=== PATIENT | male | born 1975 | race Caucasian/White ===

== ENCOUNTER 2022-12-30 16:42 | Emergency (ER) | payer MEDICARE, SELFPAY ==
[2022-12-30 16:59] VITALS: BP 133/93; PULSE 84; RESP 16; TEMP 37; O2SAT 99
--- NOTE | 2022-12-30 17:09 | DI.RAD.S_ITS ---
PROCEDURE: XR CHEST 2V INDICATIONS: congestion TECHNIQUE: 2 views of the chest were acquired. COMPARISON: None. FINDINGS: Surgical changes and devices: None. Lungs and pleura: Lungs are clear. No pleural effusions or pneumothorax. Mediastinum: Mediastinal contours are normal. Heart size is normal. Bones and chest wall: No suspicious bony abnormalities. Soft tissues appear unremarkable. IMPRESSION: Normal chest. No infiltrates. Dictated by: Michele Del Rosario M.D. on 12/30/2022 at 16:39 Approved by: Michele Del Rosario M.D. on 12/30/2022 at 16:39
[2022-12-30 17:17] LABS: Appearance Urine UA CLEAR; Bilirubin Urine UA NEGATIVE (NEGATIVE); Color Urine UA YELLOW; Glucose Urine UA NEGATIVE (Negative); Ketones Urine UA NEGATIVE (NEGATIVE); Leukocyte Esterase Urine UA NEGATIVE (NEGATIVE); Nitrite Urine UA NEGATIVE (Negative); Occult Blood Urine UA NEGATIVE (Negative); Protein Urine UA NEGATIVE (Negative); Specific Gravity Urine UA 1.025 (1.000-1.035); Urobilinogen Urine UA 0.2 E.U./dL (0.2); pH Urine UA 6.5 (4.5-8.0)
[2022-12-30 17:22] LABS: UR Morphine/Opiate cutoff 300 Negative (Negative); Ur Creatinine Normal (Normal); Ur Specific Gravity Normal (Normal); Urine Amphetamines Negative (Negative); Urine Barbiturates Negative (Negative); Urine Benzodiazepines Negative (Negative); Urine Cocaine Negative (Negative); Urine MDMA Negative (Negative); Urine Methadone Negative (Negative); Urine Methamphetamines Negative (Negative); Urine Oxycodone Negative (Negative); Urine Phencyclidine Negative (Negative); Urine Tetrahydrocannabinol Negative (Negative); Urine Tricyclic Antidepressant Negative (Negative); Urine pH Normal (Normal)
[2022-12-30 17:24] LABS: Bacteria Urine None Seen; Culture Indicated Urine Cult Not Indicated; RBC Urine None Seen (0-5/HPF); Squamous Epithelial Cell Urine 0-1 /HPF (0-5/HPF); WBC Urine 0-1/HPF (0-5/HPF)
[2022-12-30 17:37] LABS: COVID19 -Nasal RAPID Negative (Negative)
== END 2022-12-30 18:38 | disposition left against medical advice (07) ==
PROVIDERS: Emergency Medicine; Emergency Provider Emergency Medicine
DX: R09.89 Other specified symptoms and signs involving the circulatory and respiratory systems (principal); Z20.822 Contact with and (suspected) exposure to COVID-19
CPT/HCPCS: 71046; 80305; 81001; 87635; 99283; C9803